=== PATIENT | female | born 1970 | race Two or more races ===

== ENCOUNTER 2022-12-27 15:32 | Outpatient (OUT) | payer OTHER, SELFPAY ==
--- NOTE | 2022-12-27 15:34 | MM_ITS ---
Patient: SHASHANK DHALIWAL Exam Date: 12/27/2022 : 1970 Gender:F Ordering : DR. SWETA JACOBSEN . Admission #: [id number] Family : Order #: [id number] CLICK HERE TO VIEW EXAM RADIOLOGY REPORT PROCEDURE: MM TOMOSYNTHESIS SCREENING BI COMPARISON: MG MAMM SCREEN 3D SHREE CAD, 10/18/2020. MG MAMM SCREEN 3D SHREE CAD, 12/26/2021. INDICATIONS: SCREENING MAMMOGRAM Calculator Name NCI Breast Cancer Risk Assessment Tool 5 Year Breast Cancer Risk 0.50% Lifetime Breast Cancer Risk 3.90% Personal Breast Cancer No Personal Ovarian Cancer No Treatments None Family Cancers None LOCATION: [facility] BREAST COMPOSITION: Extremely dense, which lowers the sensitivity of mammography. FINDINGS: DIAGNOSTIC CATEGORY 2--BENIGN FINDING. NO CHANGE FROM COMPARISON. RIGHT BREAST: No significant suspicious finding. LEFT BREAST: No significant suspicious finding. Geographic microcalcifications anterior breast, stable limiting sensitivity RECOMMENDATIONS: ROUTINE MAMMOGRAM AND CLINICAL EVALUATION IN 12 MONTHS. PLEASE NOTE: A NORMAL MAMMOGRAM DOES NOT EXCLUDE THE POSSIBILITY OF BREAST CANCER. A CLINICALLY SUSPICIOUS PALPABLE LUMP SHOULD BE BIOPSIED. Dictated by: Nicolas Ayala MD on 12/28/2022 at 07:30 Approved by: Nicolas Ayala MD on 12/28/2022 at 07:31
--- NOTE | 2022-12-27 15:43 | US_ITS ---
The [address] [address] Patient Name: SHASHANK DHALIWAL MRN: [id number] date: 1970 Sex: F Assigned Patient Location: MAMMO Current Patient Location: MAMMO Accession/Order Number: [id number] Exam Date: 12/27/2022 15:45 Report Date: 12/28/2022 05:01 At the request of: SWETA JACOBSEN Procedure: US extremity nonvascular LT EXAMINATION: US extremity nonvascular LT HISTORY: LEFT WRIST LUMP AND PAIN COMPARISON: No relevant comparison available. FINDINGS: Percutaneous ultrasound and duplex Doppler evaluation of left wrist and may concern demonstrate a 3 x 3 x 2 mm hypoechoic structure with some internal echoes corresponding to patient's palpable lump. IMPRESSION: 1. Patient's palpable lump at base of thumb appears to correspond to a benign-appearing cyst. No appreciable connection to a tendon. Electronically authenticated by: HAKEEM ALATORRE Date: 12/28/2022 05:01
--- NOTE | 2022-12-27 15:43 | XR_ITS ---
[address] [address] Patient Name: SHASHANK DHALIWAL MRN: [id number] date: 1970 Sex: F Assigned Patient Location: [facility] Current Patient Location: [facility] Accession/Order Number: [id number] Exam Date: 12/27/2022 16:15 Report Date: 12/27/2022 16:54 At the request of: SWETA JACOBSEN Procedure: XR shoulder RT min 2V EXAM: XR shoulder RT. HISTORY: . SHOULDER PAIN . COMPARISON: None. TECHNIQUE: 3 views FINDINGS: No fracture or dislocation of the right shoulder is noted. Early arthritic changes are noted involving the superolateral aspect of the humeral head. Mild arthritic changes of the right AC joint are noted. Surrounding soft tissues are unremarkable. IMPRESSION: Mild osteoarthritic changes of the right shoulder. Electronically authenticated by: RED MILLER Date: 12/27/2022 16:54
== END 2022-12-27 15:33 ==
LOC: MAMMO 15:32
PROVIDERS: PCP Family Medicine; Visit Provider Family Medicine
DX: M25.532 Pain in left wrist (principal); M25.511 Pain in right shoulder; Z12.31 Encounter for screening mammogram for malignant neoplasm of breast
CPT/HCPCS: 73030; 76882; 77063; 77067

== ENCOUNTER 2024-01-07 15:57 | Outpatient (OUT) | payer OTHER, SELFPAY ==
--- NOTE | 2024-01-07 16:26 | MM_ITS ---
Patient Name: SHASHANK DHALIWAL MR#: [id number] : 1970 Exam Date: 01/07/2024 Ordering Doctor: DR. SWETA JACOBSEN . RADIOLOGY REPORT PROCEDURE: MM TOMOSYNTHESIS SCREENING BI COMPARISON: MM TOMOSYNTHESIS SCREENING BI, 12/27/2022. MG MAMM SCREEN 3D SHREE CAD, 12/26/2021. MG MAMM SCREEN 3D SHREE CAD, 10/18/2020. MG MAMM SHREE SCRN W CAD DIG, 04/20/2014. INDICATIONS: Screening for malignancy Calculator Name NCI Breast Cancer Risk Assessment Tool 5 Year Breast Cancer Risk 0.50% Lifetime Breast Cancer Risk 3.80% Personal Breast Cancer No Personal Ovarian Cancer No Treatments None Family Cancers Cousin-maternal with breast cancer at age 54. LOCATION: [facility] BREAST COMPOSITION: The breasts are extremely dense, which lowers the sensitivity of mammography. FINDINGS: DIAGNOSTIC CATEGORY 2--BENIGN FINDING: RIGHT BREAST: No significant suspicious finding. No significant change has occurred. LEFT BREAST: No significant suspicious finding. Scattered benign-appearing calcifications are present. No significant change has occurred. RECOMMENDATIONS: ROUTINE MAMMOGRAM AND CLINICAL EVALUATION IN 12 MONTHS. PLEASE NOTE: A NORMAL MAMMOGRAM DOES NOT EXCLUDE THE POSSIBILITY OF BREAST CANCER. A CLINICALLY SUSPICIOUS PALPABLE LUMP SHOULD BE BIOPSIED. Dictated by: Christian Ferrari M.D. on 01/08/2024 at 07:25 Approved by: Christian Ferrari M.D. on 01/08/2024 at 07:27
== END 2024-01-07 15:58 | disposition home or self-care (01) ==
PROVIDERS: PCP Family Medicine; Visit Provider Family Medicine
DX: Z12.31 Encounter for screening mammogram for malignant neoplasm of breast (principal); Z80.3 Family history of malignant neoplasm of breast
CPT/HCPCS: 77063; 77067